=== PATIENT | male | born 1980 | race Caucasian/White ===

== ENCOUNTER → 2016-09-26 | Outpatient (CLI) | payer OTHER ==
[2016-09-26 11:35] LABS: ALBUMIN 3.6 GM/DL (3.2-5.2); ALBUMIN/GLOBULIN RATIO 1.13 (1.00-1.93); ALKALINE PHOSPHATASE 99 U/L (45-117); ALT/SGPT 73 U/L (12-78); ANION GAP 7 MEQ/L (8-16); AST/SGOT 30 U/L (15-37); BILIRUBIN,TOTAL 0.5 MG/DL (0.2-1.0); BLOOD UREA NITROGEN 19 MG/DL (7-18); CALCIUM LEVEL 8.4 MG/DL (8.5-10.1); CARBON DIOXIDE LEVEL 30 MEQ/L (21-32); CHLORIDE LEVEL 104 MEQ/L (98-107); CHOLESTEROL LEVEL 203 MG/DL (<200); CREATININE FOR GFR 1.13 MG/DL (0.70-1.30); GLOMERULAR FILTRATION RATE > 60.0 (>60); GLUCOSE, FASTING 112 MG/DL (70-105); POTASSIUM SERUM 4.1 MEQ/L (3.5-5.1); SODIUM LEVEL 141 MEQ/L (136-145); TOTAL PROTEIN 6.8 GM/DL (6.4-8.2); TRIGLYCERIDES LEVEL 127 MG/DL (<150)
== END ==
LOC: M WUC 08:44
PROVIDERS: ATTEND Nurse Practitioner Family
DX: E78.5 Hyperlipidemia, unspecified (principal)

== ENCOUNTER → 2017-02-03 | Outpatient (CLI) | payer OTHER ==
[2017-02-03 11:24] LABS: MEAN CORPUSCULAR HEMOGLOBIN 30.6 pg (27.0-33.0); MEAN CORPUSCULAR HGB CONC 34.8 g/dl (32.0-36.5); MEAN CORPUSCULAR VOLUME 87.7 fl (80.0-96.0); RED CELL DISTRIBUTION WIDTH 12.8 % (11.5-14.5); WHITE BLOOD COUNT 6.3 K/mm3 (4.0-10.0)
[2017-02-03 11:48] LABS: ERYTHROCYTE SEDIMENTATION RATE 6 mm/hr (0-15)
[2017-02-03 12:02] LABS: BASOPHILS 1 % (0-4); EOSINOPHILS 4 % (0-5)
--- NOTE | 2017-02-03 12:15 | REP ---
KUB, TWO VIEWS: HISTORY: Epigastric pain. A small amount of air is present in small and large intestine. There are no air fluid levels or dilated loops of intestine. There is no pneumoperitoneum. IMPRESSION: Nonspecified bowel gas pattern. Signed by Gurdeep Dyson MD 02/03/2017 12:34 P
[2017-02-03 12:17] LABS: ALBUMIN 3.9 GM/DL (3.2-5.2); ALBUMIN/GLOBULIN RATIO 1.11 (1.00-1.93); ALKALINE PHOSPHATASE 97 U/L (45-117); ALT/SGPT 54 U/L (12-78); AMYLASE 31 U/L (25-115); ANION GAP 5 MEQ/L (8-16); AST/SGOT 17 U/L (15-37); BILIRUBIN,TOTAL 0.5 MG/DL (0.2-1.0); BLOOD UREA NITROGEN 17 MG/DL (7-18); CALCIUM LEVEL 9.1 MG/DL (8.5-10.1); CARBON DIOXIDE LEVEL 31 MEQ/L (21-32); CHLORIDE LEVEL 106 MEQ/L (98-107); CREATININE FOR GFR 1.06 MG/DL (0.70-1.30); GLOMERULAR FILTRATION RATE > 60.0 (>60); GLUCOSE, FASTING 91 MG/DL (70-105); POTASSIUM SERUM 4.4 MEQ/L (3.5-5.1); SODIUM LEVEL 142 MEQ/L (136-145); TOTAL PROTEIN 7.4 GM/DL (6.4-8.2)
== END ==
LOC: M WUC 10:33
PROVIDERS: ATTEND Physician Assistant
DX: R10.816 Epigastric abdominal tenderness (principal)

== ENCOUNTER → 2020-03-26 | Outpatient (CLI) | payer OTHER ==
--- NOTE | 2020-04-03 14:45 | SLEEPCENT ---
DATE: 03/26/2020 ORDERED BY: JAI Palacios Nocturnal polysomnography was performed for evaluation of sleep physiology in this patient with a history of excessive somnolence, morning headaches, and nonrestorative sleep. Seven hours and 36 minutes of data were reviewed. There were 328.5 minutes of sleep identified. Sleep latency was mildly prolonged at 15 minutes. REM latency more so prolonged at 134 minutes. Sleep architecture was fragmented, improved after interventions were made, and there was one prolonged REM cycle noted late in the study. Overall sleep efficiency is 73.2%. The electrocardiogram showed a sinus rhythm with an average heart rate of 50 beats per minute. Frequent PVCs were noted early in the study. EEG showed reasonably normal waveforms for wake and sleep with some alpha intrusion into non-REM stages. There were 161 respiratory events identified of 10 seconds in duration or greater for an apnea-hypopnea index of 29.4. Having clearly established the presence of obstructive sleep apnea syndrome early in the study, testing was stopped for the application of pressure therapy. The patient was fit with a [employer] Quattro full face mask of medium size, and 4 cm of water pressure were applied to the circuit and the lights were again extinguished. Throughout the remaining hours of testing, pressure titration was performed to the optimal pressure of +12 with which the patient slept through REM without respiratory event or oxygen desaturation. IMPRESSIONS: Severe obstructive sleep apnea syndrome (G47.33). Apnea-hypopnea index 29.4. RECOMMENDATION: Nightly use of pressure therapy 12 cm of water. MTDD
== END ==
LOC: M SLEEP 20:00
PROVIDERS: ATTEND Nurse Practitioner Family
DX: R06.83 Snoring (principal)

== ENCOUNTER → 2020-06-27 | Outpatient (CLI) | payer SELFPAY | LOC: M LABSMTC 08:08 | PROVIDERS: ATTEND Pediatrics | DX: Z20.828 Contact with and (suspected) exposure to other viral communicable diseases (principal) ==

== ENCOUNTER → 2020-08-12 | Outpatient (REF) | payer OTHER | LOC: M SMT 13:19 | PROVIDERS: ATTEND Urology | DX: Z30.2 Encounter for sterilization (principal) ==

== ENCOUNTER → 2022-03-21 | Outpatient (CLI) | payer OTHER | LOC: M WUC 13:13 | PROVIDERS: ATTEND Physician Assistant Medical | DX: R05.9 Cough, unspecified (principal); J06.9 Acute upper respiratory infection, unspecified ==